=== PATIENT | male | born 1965 | race Caucasian/White ===

== ENCOUNTER 2017-03-22 14:51 | Emergency (ER) | payer OTHER ==
[~2017-03-22] VITALS: Ht 170.2 cm; Wt 127.0 kg
[~2017-03-22 14:51] MED LIST: ALBUTEROL INHAL17 GM IH; AZITHROMYCIN 2250 MG PO; NORFLEX100 MG PO; PREDNISONE50 MG PO; TESSALON200 MG PO
[2017-03-22] MEDS ORDERED: ULTRAM 50MG TAB50 MG PO (15:39)
[2017-03-22] MEDS ORDERED: NAPROSYN500 MG PO (15:39)
== END 2017-03-22 16:04 | disposition home or self-care (01) ==
LOC: ER 14:51
DX: S76.012A Strain of muscle, fascia and tendon of left hip, initial encounter (principal); M19.90 Unspecified osteoarthritis, unspecified site; Z88.0 Allergy status to penicillin; Z88.5 Allergy status to narcotic agent; X58.XXXA Exposure to other specified factors, initial encounter; Y93.89 Activity, other specified; Y92.89 Other specified places as the place of occurrence of the external cause; Y99.8 Other external cause status